=== PATIENT | male | born 1995 | race Caucasian/White ===

== ENCOUNTER 2017-03-22 17:19 | Emergency (ER) | payer BC, OTHER ==
[~2017-03-22] VITALS: Ht 175.3 cm; Wt 104.0 kg
[2017-03-22 17:22] VITALS: BP 159/83; TEMP 36.9; Ht 175.3 cm; Wt 104.0 kg
[2017-03-22] MEDS ORDERED: XYLOCAINE 1%/SOD BICARB 20 ML VIAL INFIL ONE (17:30)
[2017-03-22 18:10] VITALS: PULSE 86; O2SAT 96
[2017-03-22] MEDS ORDERED: AMPH20CA3 PO (18:13)
[2017-03-22] MEDS ORDERED: MULT-506 PO (18:13)
--- NOTE | 2017-03-23 22:11 | EMERGENCY ROOM VISIT NOTE ---
ED Visit Note First contact with patient: 17:27 Chief Complaint: I cut my left thumb. History of Present Illness: Mr. Spence is a 22-year-old white male who ambulates into the ED complaining of a left thumb laceration. Patient reports approximately 2 hours ago he was using a utility knife and he accidentally cut his left thumb. Prior to coming to Hospital ED control bleeding but did not wash the wound. Associated with his pain patient reports he has a burning and throbbing sensation in the area of his laceration. He rates his discomfort 5/10. His pain is nonradiating. His pain worsens with palpation. He has not identified any alleviating factors related to the pain. He has not taken any medications for pain prior to arrival at the hospital. Associated with his pain he reports over the mid finger pad patient has mild tingling sensations. Review of Systems: As noted above in history of present illness. Past Medical History: Attention deficit disorder. Current Medications: Adderall, multivitamins. Allergies to Medications: Patient denies. Social History: Patient is currently employed; he feels safe in his home environment; he denies tobacco use and admits to alcohol use. Tetanus Immunization Status: Patient reports up-to-date. Physical Examination: Vital Signs: Date Time Temp Pulse Resp B/P (MAP) Pulse Ox O2 Delivery O2 Flow Rate FiO2 03/22/17 18:10 86 18 96 Room Air 03/22/17 17:22 36.9 94 18 159/83 97 GENERAL: 22-year-old male in mild distress due to pain, nontoxic-appearing, afebrile and hemodynamically stable. NEUROLOGICAL: Awake, alert and oriented to person, place and time. Answering questions appropriately and following commands. SKIN: Warm, dry and pink. Left Thumb: Over the anterior aspect of the proximal phalanx patient has a 2.6 cm full-thickness laceration. No active bleeding. LEFT THUMB: No gross bony deformity. Soft tissue injury as noted above. Full range of motion in all movements against resistance of the MCP and interphalangeal joint. Throughout the finger the skin was warm and pink and capillary refill is brisk. He is able to distinguish light sensations through all dermatomes of the thumb. ED Course: Patient is assessed as noted above. Patient's medication list was reviewed. Wound Repair: Complexity: Basic Verbal consent was obtained after the risks and benefits were explained. The skin was prepped with betadine and a sterile field set. Wound edges of the wound was anesthetized with 2.6 ml buffered 1% lidocaine. The wound was explored for foreign bodies and none found. Copious irrigation was performed using sterile saline. With direct pressure the bleeding subsided. Debridement was not performed. The wound edges were approximated using 5-0 Ethilon with 6 simple interrupted sutures. Hemostasis and excellent approximation was achieved. Antibacterial ointment and a sterile dressing applied. No complications and the patient tolerated the procedure well. Patient was educated about tonight's findings and instructed on his treatment plan; he verbalizes understanding and agreement with this plan. Clinical Impression: Laceration of the left thumb. Disposition: Patient discharged home in stable condition; prior to departure he was reassessed and subjectively reported he was feeling better and rated his discomfort 1/10. Plan: Comfort measures, wound care, and signs of infection were discussed with the patient. Patient was encouraged to follow-up with PCP or return to the ED for any signs of infection and/or suture removal in 10-12 days.
== END 2017-03-22 18:13 | disposition home or self-care (01) ==
LOC: C.EDB 17:20 → C.EDD 18:13
DX: S61.012A Laceration without foreign body of left thumb without damage to nail, initial encounter (principal); W26.0XXA Contact with knife, initial encounter; R41.840 Attention and concentration deficit

== ENCOUNTER → 2017-09-14 | Outpatient (CLI) | payer BC ==
[~2017-09-14] MED LIST: AMPH20CA3 PO; MULT-506 PO
--- NOTE | 2017-09-14 21:45 | DIAGNOSTIC IMAGING REPORT ---
BRAIN WITHOUT CONTRAST HISTORY: 22 years-old Male H54.7 Vision problems acute headache with blurry vision COMPARISON: CT head 12/15/2011 TECHNIQUE: Multiplanar multisequence MRI of the brain was obtained without contrast. FINDINGS: Large field view creative guru localizer images demonstrate no acute abnormality. There is no restricted diffusion to suggest acute or subacute infarction. Midline structures including the corpus callosum, brainstem, optic chiasm, pituitary and pineal glands appear unremarkable on the sagittal T1 series. There is no cerebellar tonsillar herniation. Imaged cervical spine is unremarkable. There is mild hypertrophy of the adenoid tonsils without significant narrowing of the nasopharynx. There is no acute intracranial hemorrhage, midline shift, abnormal extra-axial collections, hydrocephalus or intracranial mass. Indeterminate 6 mm focus of increased T2/FLAIR signal seen within the region of the left external capsule, image 10 series 6 image 13 series 5. Brain parenchyma otherwise demonstrates no significant signal parenchymal abnormalities. Major flow voids at the level of the skull base appear patent. Moderate to severe mucosal thickening of the right maxillary sinus with minimal ethmoid and left maxillary sinus disease. Mastoid air cells are clear. The orbits are symmetric. Skull, calvarium and soft tissues are within normal limits. IMPRESSION: 1. No acute intracranial abnormality identified. 2. Nonspecific 6 mm focus of increased T2/FLAIR signal within the region of the left external capsule is likely of no clinical significance. The brain parenchyma otherwise appears to be within normal limits. 3. Moderate to severe right maxillary sinus disease. The above report was generated using voice recognition software. It may contain grammatical, syntax or spelling errors. Electronically signed by: Silvestre Castaneda M.D. 09/14/2017 9:43 PM Dictated Date/Time: 09/14/2017 9:39 PM
== END | disposition home or self-care (01) ==
LOC: C.MRI 19:35
PROVIDERS: ATTEND Physician Assistant Medical
DX: H54.7 Unspecified visual loss (principal); J01.00 Acute maxillary sinusitis, unspecified

== ENCOUNTER 2017-10-14 18:20 | Emergency (ER) | payer BC ==
[~2017-10-14] VITALS: Ht 172.7 cm; Wt 106.7 kg
[2017-10-14 18:22] VITALS: TEMP 36.6; Ht 172.7 cm; Wt 106.7 kg
[2017-10-14] MEDS ORDERED: IBUPROFEN 800 MG TAB PO STA (18:42)
[2017-10-14] MEDS ORDERED: OXYCODONE HCL IR 5 MG TAB (IMMEDIATE RELEASE) PO STA (18:42)
[2017-10-14] MEDS ORDERED: ONDANSETRON 4MG OD TAB PO ONE (18:45)
[2017-10-14] MEDS ORDERED: DIPHTHERIA/TETANUS/PERTUSSIS 0.5 ML SYR/VIAL IM. ONE (18:45)
[2017-10-14 19:40] VITALS: BP 145/83; PULSE 70; O2SAT 96
[2017-10-14] MEDS ORDERED: OXYCODONE IR HOME PACK PO ONE (19:45)
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
== END 2017-10-14 20:03 | disposition short-term general hospital (02) ==
LOC: C.EDB 18:21 → C.EDA 20:03
DX: T22.292A Burn of second degree of multiple sites of left shoulder and upper limb, except wrist and hand, initial encounter (principal); T22.291A Burn of second degree of multiple sites of right shoulder and upper limb, except wrist and hand, initial encounter; T20.04XA Burn of unspecified degree of nose (septum), initial encounter; T20.02XA Burn of unspecified degree of lip(s), initial encounter; T20.012A Burn of unspecified degree of left ear [any part, except ear drum], initial encounter; X08.8XXA Exposure to other specified smoke, fire and flames, initial encounter; Y92.89 Other specified places as the place of occurrence of the external cause; T31.0 Burns involving less than 10% of body surface